=== PATIENT | male | born 1960 | race Caucasian/White ===

== ENCOUNTER → 2020-09-04 11:02 | Outpatient (CLI) | payer BC, SELFPAY ==
--- NOTE | 2020-09-04 11:08 | XR_ITS ---
PROCEDURE: XR HIP RT 2-3V W/PELVIS CLINICAL INDICATION: ACUTE RT HIP PAIN COMPARISON: No exams were available for comparison FINDINGS: Moderate to severe osteoarthritic changes are present involving the right hip. There is a small concave defect involving the the right femoral head laterally which may be seen with femoral acetabular impingement. No definite acute fracture or dislocation is evident. IMPRESSION: Moderate to severe osteoarthritis with possible right femoral acetabular impingement Dictated by: Ha John MD 09/04/2020 11:50 Ha John MD in [facility] 09/04/2020 11:50
== END ==
PROVIDERS: PCP Family Medicine; Visit Provider Family Medicine
DX: M25.551 Pain in right hip (principal)
CPT/HCPCS: 73502

== ENCOUNTER 2020-10-08 16:00 | Outpatient (RCR) | payer BC, SELFPAY ==
--- NOTE | 2020-09-10 16:35 | [facility]H.PTOPEV ---
PT Outpatient Evaluation Rehab PT Outpatient Evaluation Start: 09/10/20 15:46 Freq: Status: Active Protocol: Document 09/10/20 16:21 [email or web address] (Rec: 09/10/20 16:35 GARIMATED [id number]) Electronically Signed By Pee Lees, PT 09/10/20 16:21 Outpatient Therapy Subjective History Subjective History This is the initial Physical Therapy evaluation for Otf Guy. Pt reports he began having pain in RLE from R buttocks and lateral thigh to knee ~ several months ago . Pt reports he began having intermittant paresthesia in R foot as well. Pt reports he does not recall any trauma to area and states insidious onset of pain. Pt reports sleeping or lying on R side aggravates the paresthesia. Pt does reports X-ray of R hip showed arthritis Chief Complaint Pain,Stiff Symptom Type Ache,Throb,Dull,Numbness, Tingling Symptoms Relieved By Activity Symptoms Aggravated By Supine,Standing,Physical Activity,Walking Prior Functional Limitations None Current Functional Limitations Lifting,Housework,Sleeping, Walking Symptom Description Intermittent Lumbopelvic Eval Range of Motion Lumbar Spine Active Flexion Range of 80 Motion (degrees) Lumbar Spine Active Extension Range of 30 Motion (degrees) Left Lumbar Spine Lateral Flexion Active 30 Range of Motion (degrees) Right Lumbar Spine Lateral Flexion 25 Active Range of Motion (degrees) Special Tests Lumbar Spine Screen Negative Forward Bending Test- Standing Negative Left,Negative Right Hip Piriformis Test Negative Right Sciatic Nerve Tension Test Negative Right Unilateral Straight Leg Raise (Lasegue) Negative Right Test Sacroiliac Joint Compression Test Positive Right Hip/Knee Eval Gait Observation General Gait Pattern Observation Antalgic Gait ROM right Hip Internal Rotation Active Range of 0 Motion (degrees) Hip Internal Rotation Passive Range of 0 Motion (degrees) Hip ROM Limitations Soft Tissue Tightness Outpatient Therapy Assessment Impairments Problems/Impairmments Impaired Range of Motion, Impaired Walking,Impaired Recreational Activities,
== END 2020-10-08 16:05 | disposition home or self-care (01) ==
LOC: PT 16:00
PROVIDERS: Visit Provider Family Medicine
DX: M54.31 Sciatica, right side (principal)
CPT/HCPCS: 97010; 97014; 97035; 97110; 97140; 97163; G0283